=== PATIENT | male | born 2000 | race Caucasian/White ===

== ENCOUNTER 2022-04-11 22:35 | Emergency (ER) | payer SELFPAY ==
[~2022-04-11] VITALS: Ht 170.2 cm; Wt 91.0 kg
[2022-04-11] MEDS ORDERED: ONDANSETRON HCL 4MG/2ML INJ IV STA (22:52)
[2022-04-11] MEDS ORDERED: SODIUM CHLORIDE 0.9% 1,000 ML IV ONE (23:00)
[2022-04-11 23:32] LABS: HEMATOCRIT. 48.6 % (42.0-52.0); HEMOGLOBIN. 15.8 g/dL (14.0-18.0); MEAN CORPUSCULAR HEMOGLOBIN 30.2 pg (28.0-32.0); MEAN CORPUSCULAR VOLUME 92.8 fL (80.0-94.0); MEAN PLATELET VOLUME 8.1 fl (7.4-10.4); PLATELET 268 x1000/uL (130-400); RED BLOOD CELL COUNT 5.24 mill/uL (4.7-6.1); RED CELL DISTRIBUTION WIDTH 14.4 % (11.6-14.6)
[2022-04-12 00:16] LABS: CHLORIDE 105 mEq/L (98-107)
[2022-04-12 00:27] LABS: ETHANOL BLOOD < 10 mg/dL
[2022-04-12] MEDS ORDERED: SODIUM CHLORIDE 0.9% 1,000 ML IV ONE (01:30)
[2022-04-12 02:50] VITALS: BP 134/84
[2022-04-12 05:58] LABS: PLATELET ESTIMATE NORMAL
== END 2022-04-12 02:50 | disposition left against medical advice (07) ==
LOC: ER 22:35
DX: T40.411A Poisoning by fentanyl or fentanyl analogs, accidental (unintentional), initial encounter (principal); T40.0X1A Poisoning by opium, accidental (unintentional), initial encounter; R06.02 Shortness of breath; R55 Syncope and collapse; R41.82 Altered mental status, unspecified; R00.0 Tachycardia, unspecified; F11.129 Opioid abuse with intoxication, unspecified; E87.20 Acidosis, unspecified; Y92.89 Other specified places as the place of occurrence of the external cause
CPT/HCPCS: 36415; 80053; 80307; 80320; 80329; 82140; 83605; 85025; 93005; 96361; 96374; 99284; J2405; J7030; G0480

== ENCOUNTER 2022-08-25 04:03 | Emergency (ER) | payer SELFPAY ==
[~2022-08-25] VITALS: Ht 170.2 cm; Wt 77.0 kg
[2022-08-25 04:21] VITALS: BP 125/73
== END 2022-08-25 06:35 | disposition home or self-care (01) ==
LOC: ER 04:03
DX: F10.129 Alcohol abuse with intoxication, unspecified (principal); Y90.9 Presence of alcohol in blood, level not specified
CPT/HCPCS: 99283